=== PATIENT | male | born 1990 | race Two or more races ===

== ENCOUNTER 2021-02-06 19:42 | Emergency (ER) | payer SELFPAY ==
[~2021-02-06] VITALS: Ht 172.7 cm; Wt 77.1 kg
[2021-02-06 20:04] VITALS: BP 129/89
== END 2021-02-06 20:10 | disposition left against medical advice (07) ==
LOC: ER 19:47
DX: Z53.21 Procedure and treatment not carried out due to patient leaving prior to being seen by health care provider